=== PATIENT | female | born 1950 | race Caucasian/White ===

== ENCOUNTER → 2019-11-25 11:29 | Outpatient (REF) | payer MEDICARE, SELFPAY | LOC: ANHLAB 11:29 | PROVIDERS: PCP Internal Medicine; Visit Provider Nurse Practitioner | DX: C44.311 Basal cell carcinoma of skin of nose (principal) | CPT/HCPCS: 88305 ==

== ENCOUNTER → 2019-12-22 09:15 | Outpatient (REF) | payer MEDICARE, SELFPAY | LOC: ANHLAB 09:15 | PROVIDERS: PCP Internal Medicine; Visit Provider Nurse Practitioner | DX: C44.311 Basal cell carcinoma of skin of nose (principal) | CPT/HCPCS: 88305; 88331 ==

== ENCOUNTER 2019-12-24 09:07 | Outpatient (CLI) | payer MEDICARE, SELFPAY ==
--- NOTE | 2019-12-24 09:08 | ECG_ITS ---
Measurements Intervals [place] Rate: 86 P: 54 TN: 159 QRS: -73 QRSD: 138 T: 33 QT: 406 QTc: 487 Interpretive Statements SINUS RHYTHM RIGHT BUNDLE BRANCH BLOCK LEFT ANTERIOR FASCICULAR BLOCK ABNORMAL ECG Electronically Signed On 12-24-2019 9:43:58 CDT by Clarence Corrigan D.O.
[2019-12-24 09:55] LABS: Partial Thromboplastin Time 30.3 SECONDS (22.3-36.8); Prothrombin Time 12.6 Seconds (11.1-14.7)
== END 2019-12-24 09:08 | disposition home or self-care (01) ==
LOC: ANHSURGERY 09:08
PROVIDERS: Anesthesiology; PCP Internal Medicine; Visit Provider Surgery Plastic and Reconstructive Surgery
DX: K76.9 Liver disease, unspecified (principal); I10 Essential (primary) hypertension
CPT/HCPCS: 36415; 85610; 85730; 93005

== ENCOUNTER 2019-12-27 00:36 | Outpatient (CLI) | payer MEDICARE, SELFPAY ==
[2019-12-27 18:37] LABS: SARS-CoV-2 RNA PCR Negative
== END 2019-12-27 00:37 | disposition home or self-care (01) ==
LOC: ANHCOVIDDT 00:36
PROVIDERS: PCP Internal Medicine; Visit Provider Surgery Plastic and Reconstructive Surgery
DX: Z01.812 Encounter for preprocedural laboratory examination (principal); Z20.828 Contact with and (suspected) exposure to other viral communicable diseases; C44.90 Unspecified malignant neoplasm of skin, unspecified
CPT/HCPCS: 87635; C9803; U0003

== ENCOUNTER 2019-12-30 01:16 | Day surgery (SDC) | payer MEDICARE, SELFPAY ==
[2019-12-22 15:20] VITALS: BMI 34.7
[2019-12-30] VITALS (8 sets, daily range): BP systolic 102–158; BP diastolic 65–87; PULSE 77–103; RESP 16–20; TEMP 36.7; O2SAT 95–98
[2019-12-30] MEDS: LACTATED RINGERS 1,000 ML 30 ML IV CONT (13:20)
--- NOTE | 2019-12-30 13:55 | WPDANESEPPF ---
Anes - Initial Pre Proc Eval Procedure: Operation Date: 12/30/19 15:00 Proposed Procedures p Flap Closure Versus Full Thickness Skin Graft Left Nasal Sidewall - Vladimir Samson MD Date/Time: 12/30/19 13:55 Surgeon: Vladimir Samson MD Pre Op Diagnosis: hx of skin cancer Patient Data Age: 69 Gender: F Height: 5 ft 2 in Weight: 90.4 kg Last Vital Signs Temp 98.1 F 12/30/19 13:17 Pulse 103 H 12/30/19 13:17 Resp 20 12/30/19 13:17 BP 153/87 H 12/30/19 13:17 Pulse Ox 96 12/30/19 13:17 Allergies Allergy/AdvReac Type Severity Reaction Status Date / Time No Known Allergies Allergy Unknown Verified 12/30/19 13:34 Home Medications Medication Instructions Recorded Confirmed Type amlodipine 5 mg tablet 5 mg PO DAILY 11/25/19 12/22/19 History ascorbate calcium (vitamin C) 500 1 gm PO DAILY tablet 11/25/19 12/22/19 History mg tablet aspirin 81 mg chewable tablet 81 mg PO DAILY 11/25/19 12/30/19 History atorvastatin 20 mg tablet 20 mg PO QPM 11/25/19 12/30/19 History cetirizine 10 mg tablet 5 mg PO DAILY PRN 11/25/19 12/30/19 History cholecalciferol (vitamin D3) 50 50 mcg PO DAILY 11/25/19 12/30/19 History mcg (2,000 unit) capsule everolimus (immunosuppressive) 0.5 0.5 mg PO Q12H tablet 11/25/19 12/30/19 History mg tablet multivitamin 1 tablet PO DAILY 11/25/19 12/30/19 History omeprazole 20 mg capsule,delayed 20 mg PO DAILY 11/25/19 12/30/19 History release tacrolimus 1 mg capsule 2 mg PO Q12H cap 11/25/19 12/30/19 History Patient hx anesthesia problems: none Family hx anesthesia problems: none PMFSH Past Medical History Medical History (Updated 12/30/19 @ 13:55 by Humberto Lai MD) History of breast cancer right breast - 10/22/1992 History of hepatitis C 1992 - treatment 1999 Hyperlipidemia Hypertension Surgical History Surgical History History of breast surgery right breast surgery - needle 10/15/1992 History of bunionectomy carlos a titanium implant 04/07/2010 History of D&C 10/1972 History of foot surgery left foot - 11/11/2009 History of knee replacement 06/19/2016 - left knee History of liver transplant 02/22/2015 Social History Social History Smoking status: Never smoker Living arrangements: alone Spiritual care concerns: No Anes - Eval Final PreProcedure Day of Procedure 12/30/19 13:55 Patient weight: obese Heart: regular rate and rhythm Lungs: clear to auscultation Airway: Mallampati scale class II Neurological: alert and oriented Last oral intake: >/= 8 hours ASA classification: IV Emergent: no Anesthetic plan: proceed Anesthesia type and monitoring: general (may use an LMA) GIVS and standard monitoring Informed Consent: The patient's anesthetic plan and its attendant risks and benefits were discussed with the patient/family/POA. Questions were solicited and answers provided to the satisfaction of the patient/family/POA.
--- NOTE | 2019-12-30 14:23 | WPDHPUPDATE1 ---
History and Physical Update Update Date/Time: 12/30/19 14:23 History and Physical has been reviewed, including an updated exam of the patient. There are NO changes in the patient's condition. Will proceed with flap closure (adjacent tissue transfer) versus FTSG. Risks, benefits, and alternatives have been discussed and questions answered. Patient agrees to proceed with procedure.
[2019-12-30] MEDS: ceFAZolin 2 GM/D5W 50 ML 2 GM/50 ML BAG IVPB (15:06)
[2019-12-30] MEDS: LIDO 1%/EPINEPHRINE 1:100,000 20 ML VIAL INFILTRATE (15:07)
--- NOTE | 2019-12-30 15:41 | PM.PROC ---
Procedure Note - Detailed Date of procedure: 12/30/19 Pre-op diagnosis: hx of skin cancer Acquired deformity nose History BCC nose Post-op diagnosis: same Procedure performed: Full-thickness skin graft measuring 3 x 2.5 cm left nasal sidewall (7.5cm2) Description of procedure: Patient was marked in the preoperative holding area with her verification. Risks, benefits, alternatives were discussed in extensive detail. I want her to be very realistic about the risks involved as well as expectations. Made sure answered all of her questions to her satisfaction. Consent was obtained. She was taken to the operating room placed supine on the operating room table. Anesthesia was provided by anesthesiology and prepped and draped in a standard sterile fashion. Surgical time-out was taken. I measured out the area of the defect on the nose. This was transposed to the left supraclavicular neck. 1% lidocaine and 0.25% Marcaine with epinephrine was used anesthetize there followed by the nose. A 15 blade used to excise the skin here just deep to the dermis and this was closed using 3-0 Monocryl followed by running subcuticular 4-0 Monocryl and tissue glue. I defatted thegraft as well as pie crusted. This was sutured into place on the nasal sidewall with 5 0 chromic. I created a tie-over bolster of Xeroform wet cotton and used 3-0 nylon in order to suture this into place. She was woken taken the PACU without difficulty. All instrument sponge counts were correct at the end of the case. Anesthesia: GLMA Surgeon: Vladimir Samson MD Estimated blood loss (mL): 2 Drains: No Packing: Yes (bolster) Pathology: none sent Complications: No immediate complications Condition: stable Disposition: PACU
--- NOTE | 2019-12-30 17:48 | SUR.PHASEII ---
pt started to complain her eye was irritated. talked with kasey dutton and she told me to start with saline wash and if needed impliment eye protacall. after several uses of saline wash (visine), pt stated she was getting relief. i talked with dr huerta and he voted to stay with saline wash and not order eye protocal. i educated pt that her eye should get better within 48 hrs, and if it stayed the same or got worse, she would need to call an opthamologist.
== END 2019-12-30 17:30 | disposition home or self-care (01) ==
PROVIDERS: PCP Internal Medicine; Visit Provider Surgery Plastic and Reconstructive Surgery
PROC: (CPT 15260; principal; 2019-12-30 15:00)
DX: Z48.1 Encounter for planned postprocedural wound closure (principal); C44.311 Basal cell carcinoma of skin of nose; Z94.4 Liver transplant status; Z85.3 Personal history of malignant neoplasm of breast; Z86.19 Personal history of other infectious and parasitic diseases; Z96.652 Presence of left artificial knee joint; E66.9 Obesity, unspecified; Z68.36 Body mass index [BMI] 36.0-36.9, adult
CPT/HCPCS: 15260; A9270; J0690; J2250; J2405; J2704; J3010; J7120

== ENCOUNTER → 2021-07-26 08:41 | Outpatient (REF) | payer MEDICARE, SELFPAY | LOC: ANHLAB 08:41 | PROVIDERS: PCP Internal Medicine; Visit Provider Nurse Practitioner | DX: C44.01 Basal cell carcinoma of skin of lip (principal) | CPT/HCPCS: 88305 ==

== ENCOUNTER → 2021-09-12 07:59 | Outpatient (REF) | payer MEDICARE, SELFPAY | LOC: ANHLAB 07:59 | PROVIDERS: PCP Internal Medicine; Visit Provider Nurse Practitioner | DX: C44.01 Basal cell carcinoma of skin of lip (principal) | CPT/HCPCS: 88305; 88331 ==

== ENCOUNTER 2022-08-31 08:30 | Outpatient (RCR) | payer MEDICARE, SELFPAY ==
--- NOTE | 2022-08-01 12:58 | PTOPEVAL1 ---
Assessment and note entered by Ayesha Buckley, PT Evaluation Information Assessment Status Evaluation Diagnosis Osteoarthritis Unspec. Therapy diagnosis Low back pain Onset 2014 Subjective Information Pt is interested in building her core. Had a liver transplant , then developed a pretty large hernia . States surgeon stated would not address with surgery unless emergency. Noted also had back pain. States when wore and abdominal brace, immediate resolution of pain. Has been wearing some sort of back brace to address this. Talked to MD about building up core to assist in back pain. Reported Pain Level Pain Score 3: Self Report Additional Pain Score Comments Sitting to rest improves pain. Reports can walk about 30 min Reports just standing about a couple hours before resting Sitting to rest about 30 minutes Assessment PT Clinical Summary Pt presents w/ c/o low back pain that began after her abdominal surgery in 2014. She reports improvement in symptoms with use of back brace however cont to feel weak especially with standing and walking long periods. Evaluation shows appropriate motion, significant leg lenght discrepancy R>L, severely reduced tramsverse abdominal muscle strength, and poor gluteal muscle strength. Pt will benefit from physical therapy in order to address deficits, educate on mobility, and improve discomfort. Plan of Care Interventions Electrical Stimulation,Hot Pack/Cold Pack,Manual Therapy,Neuro Re-education,Patient/Caregiver Educati,Therapeutic Activities,Therapeutic Exercise,Ultrasound PT Services Indicated Yes Treatment Frequency and 2x weekly x 8 weeks Duration These treatments will address the objective and functional deficits as defined above. The patient will be advanced safely and appropriately in order for the patient to progress towards his/her prior level of function. Additional exercises will be introduced and as well as a comprehensive home exercise program upon discharge, if needed, ?to ensure carryover of functional gains achieved in the clinic. This treatment plan has been reviewed and agreement upon by the patient.
--- NOTE | 2022-08-01 15:38 | PTOPEVAL1 ---
Assessment and note entered by Ayesha Buckley, PT Evaluation Information Assessment Status Evaluation Diagnosis Osteoarthritis Unspec., back pain Onset 2014 Subjective Information Pt is interested in building her core. Had a liver transplant , then developed a pretty large hernia . States surgeon stated would not address with surgery unless emergency. Noted also had back pain. States when wore and abdominal brace, immediate resolution of pain. Has been wearing some sort of back brace to address this. Talked to MD about building up core to assist in back pain. Reported Pain Level Pain Score 3: Self Report Additional Pain Score Comments Sitting to rest improves pain. Reports can walk about 30 min Reports just standing about a couple hours before resting Sitting to rest about 30 minutes Assessment PT Clinical Summary Pt presents w/ c/o low back pain that began after her abdominal surgery in 2014. She reports improvement in symptoms with use of back brace however cont to feel weak especially with standing and walking long periods. Evaluation shows appropriate motion, significant leg length discrepancy R>L, severely reduced transverse abdominal muscle strength, and poor gluteal muscle strength. Pt will benefit from physical therapy in order to address deficits, educate on mobility, and improve discomfort. Plan of Care Interventions Electrical Stimulation,Hot Pack/Cold Pack,Manual Therapy,Neuro Re-education,Patient/Caregiver Educati,Therapeutic Activities,Therapeutic Exercise,Ultrasound PT Services Indicated Yes Treatment Frequency and 2x weekly x 8 weeks Duration These treatments will address the objective and functional deficits as defined above. The patient will be advanced safely and appropriately in order for the patient to progress towards his/her prior level of function. Additional exercises will be introduced and as well as a comprehensive home exercise program upon discharge, if needed, ?to ensure carryover of functional gains achieved in the clinic. This treatment plan has been reviewed and agreement upon by the patient.
--- NOTE | 2022-08-31 09:30 | PTOPDC ---
Assessment and note entered by Ayesha Buckley, PT Assessment Status Discharge Diagnosis Osteoarthritis Unspec., back pain Onset 2014 Subjective Information Pt reports feeling 85-90% improved overall. States has more energy, has been able to do activities. Reports has been sore from wokring in her garden but has had little pain. Was able to walk a lot for her vacation up and down hills. Feels like she can walk longer and more now than previously (30 minutes) Reports also feels more able to control her core and assist in bracing and assisting and supporting her hernia area. Reported Pain Level Pain Score 0: Self Report Assessment PT Clinical Summary Pt has attended therapy consistently for her back pain and core weakness. She shows significant improvement in her core strength, improvement in her lumbar ROM, and reports improvement in her ability to ambulate and perform activities at home . She states she feels 85-90% improved overall with remainder being related to strength and continuing her improvement independently. Pt is happy with her progress and function, and has mostly met her therapy goals. Thus she is being discharged from her plan of care as she is independent in her home exercises and understands when to return to therapy if necessary.
== END 2022-08-31 10:38 | disposition home or self-care (01) ==
LOC: ANHHIPT 08:30
PROVIDERS: PCP Family Medicine; Visit Provider Family Medicine
DX: M19.90 Unspecified osteoarthritis, unspecified site (principal)
CPT/HCPCS: 97110; 97112; 97162; 97530

== ENCOUNTER 2023-02-01 16:21 | Outpatient (NON) | payer MEDICARE, SELFPAY | END 2023-02-01 16:22 | disposition home or self-care (01) | LOC: ANHLAB 16:23 | PROVIDERS: PCP Family Medicine; Visit Provider Nurse Practitioner | DX: L57.0 Actinic keratosis (principal) | CPT/HCPCS: 88305 ==